=== PATIENT | male | born 1980 | race Two or more races ===

== ENCOUNTER 2018-09-15 07:03 | Emergency (ER) | payer OTHER ==
[~2018-09-15] VITALS: Ht 188 cm; Wt 127.0 kg
[2018-09-15] MEDS ORDERED: METFORMIN HCL 500MG TABLET PO ONE (10:45)
[2018-09-15] MEDS ORDERED: INSULIN LISPRO 100 UNITS/ML SUBCUT ONE (10:45)
[2018-09-15 11:18] VITALS: BP 126/84
== END 2018-09-15 11:20 | disposition home or self-care (01) ==
LOC: ER 07:36
DX: E11.65 Type 2 diabetes mellitus with hyperglycemia (principal); I10 Essential (primary) hypertension
CPT/HCPCS: 82962; 99283; J1815